=== PATIENT | male | born 1965 | race Caucasian/White ===

== ENCOUNTER 2017-02-07 13:35 | Inpatient (IN) ==
--- NOTE | 2017-02-07 14:19 | CT Report ---
Referring physician: Zak Roca Exam: CT brain without contrast Date: February 07, 2017 Comparison: None Reason: Sudden hearing loss, altered mental status, headache The patient is an Emergency Department patient on February 07, 2017. Technique: Axial images of the head were obtained without the use of contrast. Total DLP was 997.9 mGy*cm. Findings: No hydrocephalus or midline shift is present. There is no evidence of recent intracranial hemorrhage, abnormal mass effect or acute infarction. No acute osseous process is seen. The visualized paranasal sinuses and mastoid air cells appear clear. There is soft tissue thickening at the left external auditory canal. This could be related to inflammation or neoplasm. Please correlate with physical exam findings. Impression: 1. No acute intracranial process is identified. 2. There is soft tissue thickening at the left external auditory canal. This could be secondary to inflammation or neoplasm. Please correlate with physical exam findings. The CT exam was performed using one or more of the following dose reduction techniques: Automated exposure control and adjustment of the mA and/or kV according to patient size. PROCEDURE INTERPRETED AT [facility] DEPARTMENT OF RADIOLOGY Final Report Signed by: Dr. Jaylen Fontanez
[2017-02-07] MEDS ORDERED: CIPROFLOXACIN INJ 400 MG in PREMIX 1 EACH IV STA (14:40)
[2017-02-07] MEDS ORDERED: KETOROLAC 30 MG/1 ML VIAL IV STA (14:40)
[2017-02-07] MEDS ORDERED: CIPROFLOXACIN 400 MG/200 ML PREMIX IV ONE (15:01)
[2017-02-07] MEDS ORDERED: KETOROLAC 30 MG/1 ML VIAL ONE (15:01)
[2017-02-07] MEDS ORDERED: INSULIN REGULAR 100 UNIT/ML IV STA (15:02)
[2017-02-07] MEDS ORDERED: INSULIN REGULAR 100 UNIT/ML ONE (15:04)
[2017-02-07 15:21] LABS: Basophils % 0.3 % (0.0-0.8); Eosinophils % 0.1 % (0.00-10.9); Immature Granulocytes % 0.6 %; Immature Granulocytes Absolute 0.05 #; Lymphocytes # 1.7 10*3/uL (1.4-4.0); Lymphocytes % 21.5 % (21.2-54.2); Mean Corpuscular HGB Conc 33.3 GM/DL (32-36); Mean Corpuscular Hemoglobin 30 PG (27-34); Mean Corpuscular Volume 88.4 FL (87-102); Mean Platelet Volume 13.9 FL (9.6-12.0); Monocytes # 0.4 10*3/uL (0.11-0.8); Monocytes % 5.2 % (1.7-12.7); Neutrophils # 5.6 10*3/uL (1.4-7.4); Neutrophils % 72.3 % (38.7-73.9); Platelet Count 150 T/CUMM (130-400); Red Blood Count 4.75 MC/CUMM (3.8-5.5); Red Cell Distribution Width 13.3 % (9.3-17.3); White Blood Count 7.8 T/CUMM (4-12)
[2017-02-07] MEDS ORDERED: SODIUM CHLORIDE 0.9% 1,000 ML IV STA (15:27)
[2017-02-07 15:40] LABS: Calcium 8.7 MG/DL (8.5-10.1); Osmolality,Calculated 298.5 MOS/KG (273-304); Potassium 5.2 MMOL/L (3.5-5.1)
--- NOTE | 2017-02-07 16:12 | Emergency Department Note ---
IRoxanna Gwan, am scribing for, and in the presence of, Zak Roca M.D. 14:11. IAbelino Howard T, M.D., personally performed the services described in this documentation, ascribed by Sandra Mcknight in my presence, and it is both accurate and complete [id number] . Arrival - Arrival Chief Complaint: Neuro Stated Complaint: sudden hearing loss/change in mental status ED Nursing Triage Note: pt was eating lunch about 1315 and had sudden hearing loss. Mode of Arrival: Ambulatory Limitations: No Limitations Source: Patient, Significant other, Old Records Reviewed, RN Notes Reviewed Time Seen by Provider: 02/07/17 13:47 - History of Present Illness HPI Narrative: Pt is a 51 y/o male, with a hx of left coclear implant, who presents to the ED for further evaluation of hearing loss to bilateral ears more on right than left. He noted that his baseline is limited hearing in his right ear. Patient confirmed that he underwent left ear surgery 20 years ago performed by Dr[address] Bennie Ham due to the fusing of bones in his inner ear. He denies that this surgery was completed on his right ear. He continued to note that within the past 2 weeks, his left ear has been sore causing him to report to Dr. Ham yesterday. Patient was informed that he has inflammation to that ear due to his pre-existing condition of arthritis. Today as the patient was eating, he noted that he heard a "pop" and suddenly it felt as if someone turn off the sound. noted that this caused pt to become confused and disoriented prompting their visit to the ED for further evaluation. Patient denies any visual changes , any fever or any coughing. No other problems/complaints reported in ED. Onset (ago): hour(s) Consistency: constant Severity: moderate Allergies/Adverse Reactions: Allergies Allergy/AdvReac Type Severity Reaction Status Date / Time No Known Allergies Allergy Unverified 03/10/16 06:51 Home Medications: Home Medications Medication Instructions Recorded Confirmed Type Esomeprazole Magnesium [Nexium] 20 mg PO QAM 03/10/16 02/07/17 History Losartan [Cozaar] 25 mg PO QPM 03/10/16 02/07/17 History Atorvastatin [Lipitor] 80 mg PO BEDTIME #30 tablet 03/14/16 02/07/17 Rx Aspirin EC Tab 81 mg PO QAM 02/07/17 02/07/17 History Clopidogrel [Plavix] 75 mg PO QAM 02/07/17 02/07/17 History Colchicine [Colcrys] 0.6 mg PO DAILY PRN 02/07/17 02/07/17 History Ferrous Sulfate [Ferrous Sulfate 325 mg PO QAM 02/07/17 02/07/17 History Cap] HYDROcodone/ACETAMIN 7.5-325 1 tablet PO Q6H PRN 02/07/17 02/07/17 History [[place] 7.5-325] Indomethacin [Indomethacin Cap] 25 mg PO BID PRN 02/07/17 02/07/17 History Review of System - Review of System 12 point system: reviewed and no additional remarkable complaints except as stated - Review of System Constitutional: Absent: chills, fever Eyes: Absent: discharge, pain Head/Ears/Nose/Throat: Present: see HPI, earache Respiratory: Absent: cough Cardiovascular: Absent: chest pain Gastrointestinal: Absent: abdominal pain, nausea, vomiting, diarrhea Genitourinary male: Absent: urgency, dysuria Musculoskeletal: Absent: arm pain, back pain, leg pain, neck pain Skin: Absent: rash, lesions Medical,Surgical,& Family Hx - Medical History Cardio: History of: Hypertension HEENT: History of: Ear Problem (left coclear implant) Endocrine: History of: Dyslipidemia Rheumatology: History of;: Gout Gastrointestinal: History of: Diverticulitis/ Diverticulosis, GERD - Surgical History Cardiac Surgeries: Sugical HX of: Cardiac Catheterization (stents x 2 2015) Abdominal Surgeries: Patient denies: Abdominal Surgery - Family History Family History: Reports;: Family Heart Disease (father cath with four stents), Family Hypertension (mother) - Social History Smoking Status: Never smoker Frequency of Alcohol Use: None Type of Drug Use: None Exam Physical Examination: Olvera test, results inconclusive. Sreekanth test, right ear bone-conduction was higher, left ear air conduction was higher Vital Signs: Vital Signs Temperature 97.8 F 02/07/17 13:48 Pulse Rate 100 H 02/07/17 13:48 Respiratory Rate 18 02/07/17 13:48 Blood Pressure 176/99 02/07/17 13:48 O2 Sat by Pulse Oximetry 96 02/07/17 13:44 - General General appearance: alert, in no apparent distress - Head Head exam: Present: atraumatic, normocephalic - Eye Eye exam: Present: normal appearance, PERRL, EOMI - Expanded ENT Exam External ear exam: Present: pain with movement TM/Canal exam: erythema: Left TM (tenderness to touch) - Neck Neck exam: Present: full ROM, trachea midline. Absent: tenderness, meningismus - Chest Chest inspection: Present: symmetric chest wall rise. Absent: tenderness - Neurological Exam Neurological exam: Present: alert, oriented X3 - Psychiatric Psychiatric exam: Present: normal affect, normal mood - Skin Skin exam: Present: warm, dry, intact, normal color Course Course Narrative: Medical decision making: Elevated blood sugar new onset diabetes untreated, also severe otitis externa, therefore discussed with hospitalist and they evaluated and they agreed to admit the patient for further treatment and evaluation. Results - Labs CBC & BMP: 02/07/17 15:13 02/07/17 15:13 Lab Results: I have reviewed the patients labs - Diagnostic Findings Procedure: CT: report reviewed by me (head: L ear canal inflammation) Disposition Clinical Impression: Malignant otitis externa of left ear, New onset type 2 diabetes mellitus Case discussed with: patient, patient's family Disposition: Disch/Xfer-Ipshort Term Hos Condition: Stable Time of Disposition: 16:11
[2017-02-07] MEDS ORDERED: DOCUSATE SODIUM 100 MG CAPSULE PO PRN (16:13)
[2017-02-07] MEDS ORDERED: DEXTROSE 50% 25 GM/50 ML VIAL IV PRN (16:13)
[2017-02-07] MEDS ORDERED: ONDANSETRON 4 MG/2 ML VIAL IV PRN (16:13)
[2017-02-07] MEDS ORDERED: diphenhydrAMINE CAP 25 MG CAPSULE PO PRN (16:13)
[2017-02-07] MEDS ORDERED: ACETAMINOPHEN 325 MG TABLET PO PRN (16:13)
[2017-02-07] MEDS ORDERED: GLUCAGON 1 MG VIAL IM PRN (16:13)
[2017-02-07] MEDS ORDERED: ZALEPLON 5 MG CAPSULE PO PRN (16:13)
[2017-02-07] MEDS ORDERED: COLCHICINE 0.6 MG TABLET PO PRN (16:21)
--- NOTE | 2017-02-07 16:29 | Hospitalist History & Physical ---
Assessment and Plan (1) Malignant otitis externa of left ear Status: Acute Assessment and plan: Hearing loss due to complete occlusion of ear canal on left with chronic hearing loss in right ear. Will likely need lavaged clear and more thorough exam. Will begin empiric abx with anti-pseudomonal abx (zosyn). Consulting ENT. Current Visit: Yes (2) Hyperosmolar non-ketotic state in patient with type 2 diabetes mellitus Status: Acute Assessment and plan: New dx of DM2, not previously on tx. Will begin aggressive IVF hydration and SSI. Will anticipate and address hypokalemia or other metabolic abn as they arise. Baseline HbA1c pending. Anticipate starting oral meds +/- basal insulin as renal function improves. clinical document improvement educator consulted. Current Visit: Yes (3) Essential (primary) hypertension Status: Acute Assessment and plan: continue home med and monitor response Current Visit: No (4) ABNER (acute kidney injury) Status: Acute Assessment and plan: Baseline Cr 1.1 one year ago. Presume ABNER related to dehydration and HONK. Re- eval after IVF hydration. Current Visit: Yes (5) Psoriatic arthritis Status: Chronic Current Visit: Yes History of Present Illness Chief complaint: dizzy, hearing loss History of present illness: Mr. Lopez is a 51 year old male with PMH sig for HTN, gout, and psoriatic arthritis. Saw Dr Pulido yesterday in clinic due to worsening pain in left ear. Was diagnosed with "high blood sugar" and "arthritis effecting his ear" and was prescribed Indocin. Pt also began recording his blood sugars. Today he felt worse with new onset of dizziness and hearing loss. The pt has chronic hearing loss and prior surgeries on both ears as a child. The left ear was his "good ear ". As symptoms have worsened today he completely lost hearing. During his eval in ED today the pt was found to have malignant otitis externa and hyperglycemia (HONK). Home Medications Medication Instructions Recorded Confirmed Type Esomeprazole Magnesium [Nexium] 20 mg PO QAM 03/10/16 02/07/17 History Losartan [Cozaar] 25 mg PO QPM 03/10/16 02/07/17 History Atorvastatin [Lipitor] 80 mg PO BEDTIME #30 tablet 03/14/16 02/07/17 Rx Aspirin EC Tab 81 mg PO QAM 02/07/17 02/07/17 History Clopidogrel [Plavix] 75 mg PO QAM 02/07/17 02/07/17 History Colchicine [Colcrys] 0.6 mg PO DAILY PRN 02/07/17 02/07/17 History Ferrous Sulfate [Ferrous Sulfate 325 mg PO QAM 02/07/17 02/07/17 History Cap] HYDROcodone/ACETAMIN 7.5-325 1 tablet PO Q6H PRN 02/07/17 02/07/17 History [[place] 7.5-325] Indomethacin [Indomethacin Cap] 25 mg PO BID PRN 02/07/17 02/07/17 History Allergies Allergy/AdvReac Type Severity Reaction Status Date / Time No Known Allergies Allergy Unverified 03/10/16 06:51 Medical,Surgical,& Family Hx - Medical History Cardio: History of: Hypertension, Cardiovascular Problems HEENT: History of: Ear Problem (left coclear implant) Endocrine: History of: Dyslipidemia Rheumatology: History of;: Gout, Psoriasis Gastrointestinal: History of: Diverticulitis/ Diverticulosis, GERD Musculoskeletal: History of: Musculoskeletal Problems - Surgical History Cardiac Surgeries: Sugical HX of: Cardiac Catheterization (stents x 2 2015) Abdominal Surgeries: Patient denies: Abdominal Surgery - Family History Family History: Reports;: Family Heart Disease (father cath with four stents), Family Hypertension (mother) - Social History Smoking Status: Never smoker Frequency of Alcohol Use: None Type of Drug Use: None Marital Status: Lives With:: Spouse Functional capacity: independent ambulation 12 point system: reviewed and no additional remarkable complaints except as stated - Constitutional Constitutional: Present: as per HPI, chills - EENT Ears: Present: as per HPI, decreased hearing, ear pain - Musculoskeletal Musculoskeletal: Present: arthralgias - Neurological Neurological: Present: dizziness - Endocrine Endocrine: Present: as per HPI, polydipsia, polyphagia Exam - Constitutional Vitals: Period Temp Pulse Resp BP Sys/Hall Pulse Ox Last 24 Hr 97.6 F-97.8 F 100-100 18-18 176-176/99-99 96 General appearance: over weight - Head Head exam: Present: normal inspection - Eye Eye exam: Present: EOMI. Absent: conjunctival injection, scleral icterus Pupils: Present: ASHOK - ENT ENT exam: Present: other (left ear canal obstructed with debris. pain with any movement of pinna) - Neck Neck exam: Present: normal inspection. Absent: meningismus, tenderness - Respiratory Respiratory exam: Present: clear to auscultation bilaterally. Absent: rales, rhonchi, wheezes - Cardiovascular Cardiovascular exam: Present: regular rate and rhythm. Absent: gallop, rubs - GI/Abdominal GI/Abdominal exam: Present: normal bowel sounds. Absent: distended, guarding, tenderness - Extremities Exam Extremities exam: Present: normal inspection, full ROM. Absent: edema - Neurological Exam Neurological exam: Present: alert, oriented X3 - Psychiatric Psychiatric exam: Present: other (UTO due to hearing loss) - Skin Skin exam: Present: normal color, warm, dry Results - Labs CBC & BMP: 02/07/17 15:13 02/07/17 15:13 Quality Measures - Stroke Onset of Symptoms Date: 02/07/17 Onset of Symptoms Time: 13:15
[2017-02-07] MEDS: INSULIN REGULAR 100 UNIT/ML SUBCUT SCH ×2 (16:30→21:04)
[2017-02-07] MEDS ORDERED: ENOXAPARIN 40 MG/0.4 ML SYRINGE SUBCUT SCH (16:30)
--- NOTE | 2017-02-07 16:54 | XRay Report ---
Referring Physician: Yasir Salvador MD Exam: XR chest 1V portable Date: February 07, 2017 at 4:26 PM Reason: Shortness of breath Comparison: Chest 2 views March 10, 2016 Findings: The cardiac silhouette is normal in size. There may be minimal atelectasis at the lung bases, but no definite focal consolidation, pneumothorax or pleural effusion is identified. No acute osseous process is seen. Impression: Questionable minimal atelectasis at the lung bases. PROCEDURE INTERPRETED AT [facility] DEPARTMENT OF RADIOLOGY Final Report Signed by: Dr. Jaylen Fontanez
[2017-02-07] MEDS ORDERED: LOSARTAN 25 MG TABLET PO SCH (19:00)
[2017-02-07] MEDS: PANTOPRAZOLE 40 MG TABLET PO SCH (19:39)
[2017-02-07] MEDS: SODIUM CHLORIDE 0.9% 1,000 ML IV SCH (19:39)
[2017-02-07] MEDS: PIPERACILLIN/TAZOBACTAM 3,375 MG in SODIUM CHLORIDE 0.9% 100 ML IV SCH (19:45)
[2017-02-07] MEDS ORDERED: ATORVASTATIN 40 MG TABLET PO SCH (21:00)
[2017-02-07 21:49] LABS: Albumin 3.3 G/DL (3.4-5.0); Calcium 8.4 MG/DL (8.5-10.1); Osmolality,Calculated 289.5 MOS/KG (273-304); Phosphorous 3.2 MG/DL (2.5-4.9); Potassium 3.9 MMOL/L (3.5-5.1)
[2017-02-08] MEDS: PIPERACILLIN/TAZOBACTAM 3,375 MG in SODIUM CHLORIDE 0.9% 100 ML IV SCH ×2 (03:55→10:06)
[2017-02-08 05:29] LABS: Basophils % 0.4 % (0.0-0.8); Eosinophils # 0.1 10*3/uL (0.0-0.87); Eosinophils % 1.3 % (0.00-10.9); Hematocrit 36.7 VOL% (42.0-52.0); Hemoglobin 12.1 GM/DL (14.0-18.0); Immature Granulocytes % 0.7 %; Immature Granulocytes Absolute 0.04 #; Lymphocytes # 2.3 10*3/uL (1.4-4.0); Lymphocytes % 40.6 % (21.2-54.2); Mean Corpuscular Hemoglobin 29 PG (27-34); Mean Corpuscular Volume 87.8 FL (87-102); Mean Platelet Volume 13.6 FL (9.6-12.0); Monocytes # 0.3 10*3/uL (0.11-0.8); Monocytes % 5.4 % (1.7-12.7); Neutrophils # 2.9 10*3/uL (1.4-7.4); Neutrophils % 51.6 % (38.7-73.9); Platelet Count 128 T/CUMM (130-400); Red Blood Count 4.18 MC/CUMM (3.8-5.5); Red Cell Distribution Width 13.3 % (9.3-17.3); White Blood Count 5.6 T/CUMM (4-12)
[2017-02-08 05:49] LABS: Calcium 7.9 MG/DL (8.5-10.1); Osmolality,Calculated 289.1 MOS/KG (273-304); Potassium 3.8 MMOL/L (3.5-5.1)
[2017-02-08] MEDS: SODIUM CHLORIDE 0.9% 1,000 ML IV SCH (08:52)
[2017-02-08] MEDS ORDERED: ASPIRIN EC 81 MG TABLET PO SCH (09:00)
[2017-02-08] MEDS ORDERED: CLOPIDOGREL 75 MG TABLET PO SCH (09:00)
--- NOTE | 2017-02-08 09:58 | Consultation ---
Assessment and Plan - Time spent with patient Time spent with patient: Greater than 30 minutes (1) Hemorrhagic otitis externa, left ear Status: Acute Assessment and plan: I recommend beginning of Ciprodex drops. Additionally I recommend tight control of his diabetes to attempt to let his blood sugar get above 140 if possible. Additionally depending on how he progresses we may need to take him back to surgery to clean out his left ear right now he is way to tender to do anything at bedside. Tomorrow if we made no progress I will attempt to put a earwick in the left external canal he is so markedly aggravated tender I feel this may actually be counterproductive overall at this point. I cannot rule out an idiopathic sudden sensorineural hearing loss on the left but treatment of that would necessitate high-dose steroids and in light of his diabetes/ hyperglycemia that would be counterproductive especially in regards to his otitis externa so we will have to forego that treatment if that is even diagnosis hopefully his situation will become more clear and the near future after treatment. Thank you very much for this consultation I will continue to follow this patient throughout his stay. Current Visit: Yes Qualifiers: Chronicity: acute Qualified Code(s): H60.322 - Hemorrhagic otitis externa, left ear (2) Hearing loss Status: Acute Current Visit: Yes Qualifiers: Hearing loss type: mixed conductive and sensorineural Contralateral hearing status: restricted hearing on contralateral side (3) Otalgia of left ear Status: Acute Assessment and plan: Secondary to otitis externa Current Visit: Yes (4) Malignant otitis externa of left ear Status: Acute Assessment and plan: After examining the CT and the patient at this point I do not feel that this is a malignant otitis externa though if we do not treated aggressively it could progress to that. Current Visit: Yes Qualifiers: Chronicity: unspecified Qualified Code(s): H60.22 - Malignant otitis externa, left ear (5) New onset type 2 diabetes mellitus Status: Acute Current Visit: Yes History of Present Illness - Data of Consult Patient: new to practice Consult date: 02/08/17 - Consult Narrative Reason for consult: Left otitis externa with associated hearing loss History of present illness: Mr. Lopez is a 51 year old male presented to the emergency room yesterday with a left-sided hearing loss that came on all of a sudden during dinner. Additionally he was found to have purulent discharge from the left external canal. Additionally he has a history of hearing loss in the right ear along with a mastoidectomy and possible middle ear surgery of the left ear as well. This is coupled by the fact that he was found to be hyperglycemic/diabetic on exam this was unknown prior to his evaluation. ENT is consulted for evaluation and treatment. CC: Hayden Michaels MD - Home Medications and Allergies Home Medications: Home Medications Medication Instructions Recorded Confirmed Type Esomeprazole Magnesium [Nexium] 20 mg PO QAM 03/10/16 02/07/17 History Losartan [Cozaar] 25 mg PO QPM 03/10/16 02/07/17 History Atorvastatin [Lipitor] 80 mg PO BEDTIME #30 tablet 03/14/16 02/07/17 Rx Aspirin EC Tab 81 mg PO QAM 02/07/17 02/07/17 History Clopidogrel [Plavix] 75 mg PO QAM 02/07/17 02/07/17 History Colchicine [Colcrys] 0.6 mg PO DAILY PRN 02/07/17 02/07/17 History Ferrous Sulfate [Ferrous Sulfate 325 mg PO QAM 02/07/17 02/07/17 History Cap] HYDROcodone/ACETAMIN 7.5-325 1 tablet PO Q6H PRN 02/07/17 02/07/17 History [[place] 7.5-325] Indomethacin [Indomethacin Cap] 25 mg PO BID PRN 02/07/17 02/07/17 History Allergies/Adverse Reactions: Allergies Allergy/AdvReac Type Severity Reaction Status Date / Time No Known Allergies Allergy Unverified 03/10/16 06:51 12 point system: reviewed and no additional remarkable complaints except as stated Medical,Surgical,& Family Hx - Medical History Cardio: History of: Hypertension, Cardiovascular Problems HEENT: History of: Ear Problem (left coclear implant) Endocrine: History of: Dyslipidemia Rheumatology: History of;: Gout, Psoriasis Gastrointestinal: History of: Diverticulitis/ Diverticulosis, GERD Musculoskeletal: History of: Musculoskeletal Problems - Surgical History Cardiac Surgeries: Sugical HX of: Cardiac Catheterization (stents x 2 2015) Abdominal Surgeries: Patient denies: Abdominal Surgery - Family History Family History: Reports;: Family Heart Disease (father cath with four stents), Family Hypertension (mother) - Social History Smoking Status: Never smoker Frequency of Alcohol Use: None Type of Drug Use: None Exam - Constitutional Vitals: Period Temp Pulse Resp BP Sys/Hall Pulse Ox Last 24 Hr 96.1 F-96.7 F 54-74 16-20 105-141/68-83 94-100 General appearance: no acute distress, over weight - Head Head exam: Present: normal inspection, normocephalic - Eye Eye exam: Present: EOMI Pupils: Present: ASHOK - ENT ENT exam: Present: normal exam, normal oropharynx - Expanded ENT Exam Ear exam: Present: external canal tenderness (Exquisite tenderness of the left external canal unable to visualize the left tympanic membrane right side is normal. Tuning forks were used and demonstrated bone greater than air conduction on the left but a right sided lateralization which does not necessarily make sense clinically but could be explained based on what his baseline hearing history may be. Unfortunately cannot rule out a sensorineural hearing loss on the left at this time) TM exam: canal discharge: Left TM, canal tenderness: Left TM, erythema: Left TM Mouth exam: Present: normal external inspection Throat exam: Present: normal inspection - Respiratory Respiratory exam: Present: other (No shortness of breath or difficulty breathing ) - GI/Abdominal GI/Abdominal exam: Present: soft - Extremities Exam Extremities exam: Present: normal inspection, normal capillary refill - Neurological Exam Neurological exam: Present: alert, oriented X3, CN II-XII intact (Unable to make accurate statements in regards to cranial nerve VIII activity) - Psychiatric Psychiatric exam: Present: agitated, anxious, flat affect - Skin Skin exam: Present: normal color, warm Results - Labs CBC & BMP: 02/08/17 04:34 02/08/17 04:34 Lab Results: I have reviewed the past 24 hour labs (Unfortunately his hyperglycemia is a risk factor for both worsening of the external otitis externa and possibly a sensorineural hearing loss butIf things were unable to aggressively treat the sensorineural hearing loss because high-dose steroids would make his hyperglycemia worse and I cannot guarantee that it is not just isolated external otitis) - Diagnostic Findings Procedure: CT: pending, image reviewed by me, report reviewed by me (No evidence of mastoiditis on the left there would be indication of potentially a middle ear prosthesis on CT.) Quality Measures - Stroke Onset of Symptoms Date: 02/07/17 Onset of Symptoms Time: 13:15
[2017-02-08] MEDS ORDERED: CIPROFLOXACIN/DEXAMETHASONE OTIC SUSP 7.5 ML BOTTLE LEFT EAR SCH (10:00)
[2017-02-08] MEDS: INSULIN REGULAR 100 UNIT/ML SUBCUT SCH ×2 (10:02→12:40)
[2017-02-08] MEDS: PANTOPRAZOLE 40 MG TABLET PO SCH (10:04)
[2017-02-08] MEDS ORDERED: GLUCAGON 1 MG VIAL IM PRN ×2 (10:10)
[2017-02-08] MEDS ORDERED: DEXTROSE 50% 25 GM/50 ML VIAL IV PRN ×2 (10:10)
--- NOTE | 2017-02-08 11:54 | Discharge Summary ---
<Hayden Michaels - Last Filed: 02/08/17 11:48> Specialty Discharge - Follow Up or Referrals Follow up with: Navi Rincon DO [Physician] - 1 Week (CALL ON THURSDAY TO SCHEDULE AN APPOINTMENT) Discharge Plan - Discharge Data Disposition: Disch To Home/Self Care Condition at Discharge: Stable Activity: resume usual activities as tolerated Hygiene: no restrictions Weight Bearing at Discharge: full weight bearing Driving: not until seen by doctor Contact your physician if you experience:: fever over 101, Redness or swelling, Shortness of breath, pain uncontrolled by pain medications - Discharge Medications New Ciprofloxacin/Dexameth Otic [Ciprodex Otic Susp] 4 drop LEFT EAR BID #1 bottle Continue Losartan [Cozaar] 25 mg PO QPM Esomeprazole Magnesium [Nexium] 20 mg PO QAM HYDROcodone/ACETAMIN 7.5-325 [Reeds 7.5-325] 1 tablet PO Q6H PRN PRN Reason: Pain Colchicine [Colcrys] 0.6 mg PO DAILY PRN PRN Reason: Gout Clopidogrel [Plavix] 75 mg PO QAM Aspirin EC Tab 81 mg PO QAM Levofloxacin Tab [Levaquin Tab] 750 mg PO DAILY #7 tablet Indomethacin [Indomethacin Cap] 25 mg PO BID PRN PRN Reason: Pain Ferrous Sulfate [Ferrous Sulfate Cap] 325 mg PO QAM Discontinued Atorvastatin [Lipitor] 80 mg PO BEDTIME #30 tablet - Follow Up or Referral Follow Up: Navi Rincon DO [Physician] - 1 Week (CALL ON THURSDAY TO SCHEDULE AN APPOINTMENT) - Forms/Instructions Instructions: Otitis Externa (DC), How to Check Your Blood Sugar (DC), Diabetes Mellitus Type 2 in Adults (DC), Meal Planning with Diabetes Exchanges ( DC) Exam - Constitutional Vitals: Period Temp Pulse Resp BP Sys/Hall Pulse Ox Last 24 Hr 96.1 F-97.5 F 54-76 16-20 105-141/68-83 94-100 General appearance: normal weight - Head Head exam: Present: normal inspection, normocephalic - Eye Eye exam: Present: EOMI Pupils: Present: ASHOK - ENT ENT exam: Present: other (Tender petrous bone on the left side tender infra auricular structures with mild erythema very tender external auditory canal on the left. 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 Status post surgery on the left side. He comes in with external otitis which at this point does not qualify for malignant otitis media.) - Neck Neck exam: Present: other (Neck is supple midline trachea no adenopathy in the cervical chains) - Respiratory Respiratory exam: Present: clear to auscultation bilaterally - Cardiovascular Cardiovascular exam: Present: regular rate and rhythm - GI/Abdominal GI/Abdominal exam: Present: normal bowel sounds, soft - Extremities Exam Extremities exam: Present: full ROM - Back Exam Back exam: Present: normal inspection - Neurological Exam Neurological exam: Present: alert, oriented X3, CN II-XII intact - Psychiatric Psychiatric exam: Present: normal affect, normal mood - Skin Skin exam: Present: normal color, warm, dry Discharge Results Labs on day of discharge: Labs from last 24 hours 02/08/17 02/08/17 02/08/17 11:43 07:30 04:34 WBC RBC Hgb Hct MCV MCH MCHC RDW Plt Count MPV Neut % (Auto) Lymph % (Auto) [place] % (Auto) Eos % (Auto) Baso % (Auto) Neut # (Auto) Lymph # (Auto) [place] # (Auto) Eos # (Auto) Baso # (Auto) Immature Gran % Nucleated RBC % Immature Gran # Nucleated RBCs # Sodium 142 Potassium 3.8 Chloride 108 H Carbon Dioxide 24 Anion Gap 13.8 BUN 15 Creatinine 1.30 GFR Calculation 86 BUN/Creatinine Ratio 11.00 Glucose 201 H POC Glucose 183 H 212 H Hemoglobin A1c Calculated Osmolality 289.1 Calcium 7.9 L Phosphorus Albumin 02/08/17 02/07/17 02/07/17 04:34 Unknown 21:18 WBC 5.6 RBC 4.18 Hgb 12.1 L Hct 36.7 L MCV 87.8 MCH 29 MCHC 33.0 RDW 13.3 Plt Count 128 L MPV 13.6 H Neut % (Auto) 51.6 Lymph % (Auto) 40.6 [place] % (Auto) 5.4 Eos % (Auto) 1.3 Baso % (Auto) 0.4 Neut # (Auto) 2.9 Lymph # (Auto) 2.3 [place] # (Auto) 0.3 Eos # (Auto) 0.1 Baso # (Auto) 0.0 Immature Gran % 0.7 Nucleated RBC % 0.0 Immature Gran # 0.04 Nucleated RBCs # 0.00 Sodium 139 Potassium 3.9 Chloride 104 Carbon Dioxide 23 Anion Gap 15.9 H BUN 16 Creatinine 1.20 GFR Calculation 95 BUN/Creatinine Ratio 13.00 Glucose 315 H POC Glucose Hemoglobin A1c 12.4 H Calculated Osmolality 289.5 Calcium 8.4 L Phosphorus 3.2 Albumin 3.3 L 02/07/17 20:53 WBC RBC Hgb Hct MCV MCH MCHC RDW Plt Count MPV Neut % (Auto) Lymph % (Auto) [place] % (Auto) Eos % (Auto) Baso % (Auto) Neut # (Auto) Lymph # (Auto) [place] # (Auto) Eos # (Auto) Baso # (Auto) Immature Gran % Nucleated RBC % Immature Gran # Nucleated RBCs # Sodium Potassium Chloride Carbon Dioxide Anion Gap BUN Creatinine GFR Calculation BUN/Creatinine Ratio Glucose POC Glucose 269 H Hemoglobin A1c Calculated Osmolality Calcium Phosphorus Albumin DS: Provider Date of admission: 02/07/17 16:13 Primary care physician: . No PCP Attending physician on admission: Yasir Salvador MD Discharging clinician: Hayden Michaels MD <Katerin Moran - Last Filed: 02/08/17 14:57> Hospital Course - Hospital Course Hospital Course: Pt is a 51 y/o male, with a hx of left coclear implant, dm, anemia, and hyperlipidemia, who presented to the ED on 02/07 for further evaluation of hearing loss to bilateral ears more on right than left. He noted that his baseline is limited hearing in his right ear. Pt confirmed noted that after the hearing loss the patient became disoriented. Pt. denied any other issues at the time. He was admitted for further eval. Pt. was seen by Dr. Rincon from ENT today. The recommendation is for Ciprodex drops and tighter control of DM. Pt is ok to be discharged today. Will follow up with Dr. Rincon in 1 week for further evaluation.
[2017-02-08 12:36] VITALS: BP 123/75
[2017-02-09] MEDS ORDERED: LEVOFLOXACIN 750 MG TABLET PO SCH (09:00)
== END 2017-02-08 14:28 | disposition home or self-care (01) | DRG 154 ==
LOC: N.ED 13:35 → SUATTDRO 16:13 → N.EDINP 16:13 → N.3E 17:13
PROVIDERS: ADMIT Internal Medicine; ATTEND Internal Medicine Infectious Disease